=== PATIENT | female | born 2005 ===

== ENCOUNTER 2024-05-29 02:29 | Emergency (ER) | payer OTHER | END 2024-05-29 04:32 | disposition home or self-care (01) | LOC: FB.ED 02:29 | DX: S60.221A Contusion of right hand, initial encounter (principal); W23.1XXA Caught, crushed, jammed, or pinched between stationary objects, initial encounter | CPT/HCPCS: 73130-RT; 99283 ==

== ENCOUNTER 2024-07-20 20:51 | Emergency (ER) | payer OTHER ==
[2024-07-20] MEDS ORDERED: Ondansetron 4 MG Tab.DIS PO ONE (20:52)
[2024-07-20] MEDS ORDERED: Sodium Chloride 0.9% 10 ML Syringe FLUSH PRN (21:45)
[2024-07-20] MEDS: Sodium Chloride 0.9% 1,000 ML IV ONE (21:57)
[2024-07-20] MEDS: Promethazine 12.5 MG in Sodium Chloride 0.9% 50 ML IV ONE (21:58)
[2024-07-20 22:01] LABS: BASOPHILS ABSOLUTE AUTO 0.1 x10-3/uL (0.0-0.1); BASOPHILS PERCENT AUTO 0.7 % (0.2-1.5); EOSINOPHILS ABSOLUTE AUTO 0.2 x10-3/uL (0.0-0.8); EOSINOPHILS PERCENT AUTO 2.1 % (0.6-8.1); HEMATOCRIT 38.7 % (34.2-48.2); HEMOGLOBIN 13.4 g/dL (11.4-15.5); LYMPHOCYTES ABSOLUTE AUTO 2.8 x10-3/uL (1.0-4.4); LYMPHOCYTES PERCENT AUTO 26.4 % (18.4-52.1); MEAN CORPUSCULAR HEMOGLOBIN 31.7 pg (23.9-33.9); MEAN CORPUSCULAR HGB CONC 34.7 g/dL (31.9-34.8); MEAN CORPUSCULAR VOLUME 91.3 fL (76.7-100.5); MEAN PLATELET VOLUME 8.4 fL (7.1-12.4); MONOCYTES ABSOLUTE AUTO 0.7 x10-3/uL (0.3-1.0); MONOCYTES PERCENT AUTO 6.2 % (4.4-15.7); NEUTROPHILS ABSOLUTE AUTO 6.9 x10-3/uL (1.5-6.3); NEUTROPHILS PERCENT AUTO 64.6 % (30.8-76.2); PLATELET COUNT,PLT 393 x10(3)uL (151-488); RED BLOOD CELL COUNT 4.24 x10(6)uL (3.60-5.20); RED CELL DISTRIBUTION WIDTH 13.9 % (12.3-16.5); WHITE BLOOD CELL COUNT,WBC 10.7 x10-3/uL (3.0-10.3)
[2024-07-20 22:05] LABS: BILIRUBIN,URINE NEGATIVE (NEGATIVE); GLUCOSE,URINE NORMAL (NORMAL); KETONES,URINE NEGATIVE (NEGATIVE); LEUKOCYTE ESTERASE,URINE NEGATIVE (NEGATIVE); NITRITE,URINE NEGATIVE (NEGATIVE); OCCULT BLOOD,URINE MODERATE (NEGATIVE); PROTEIN,URINE NEGATIVE (NEGATIVE); UROBILINOGEN,URINE NORMAL (NEGATIVE)
[2024-07-20 22:05] LABS: BLOOD UREA NITROGEN,BUN 10 mg/dL (7-18); BUN/CREATININE RATIO 12.5 (9-20); CALCIUM 9.9 mg/dL (8.2-10.1); CARBON DIOXIDE,CO2 24 mmol/L (21-32); CHLORIDE,CL 103 mmol/L (100-110); CREATININE 0.8 mg/dL (0.55-1.02); EST CRCL DRUG DOSING (CG) 122.31 mL/min; ESTIMATED GFR 109 mL/min (>60); GLUCOSE RANDOM 99 mg/dL (80-116); POTASSIUM,K 3.7 mmol/L (3.5-5.3); SODIUM,NA 137 mmol/L (135-145)
[2024-07-20 22:07] LABS: APPEARANCE,URINE CLEAR (CLEAR); BACTERIA,URINE RARE (NS); COLOR,URINE YELLOW (YELLOW); RBC,URINE 0-5 (0-5); SQUAMOUS EPITHELIAL CELLS,UR RARE (NS,R,O); WBC,URINE 0-5 (0-5)
[2024-07-20 22:16] LABS: A/G RATIO 0.9; ALANINE AMINOTRANSFERASE,ALT 77 U/L (12-36); ALBUMIN 3.8 g/dL (3.2-4.5); ALKALINE PHOSPHATASE 83 IU/L (56-112); ASPARTATE AMNIOTRANSFERASE,AST 22 IU/L (5-25); BILIRUBIN TOTAL 0.3 mg/dL (0.1-1.2); MAGNESIUM 1.8 mg/dL (1.8-2.5); PROTEIN TOTAL,TP 8.1 g/dL (6.0-8.0)
== END 2024-07-20 23:50 | disposition home or self-care (01) ==
LOC: FB.ED 20:51
DX: R11.2 Nausea with vomiting, unspecified (principal); E86.0 Dehydration; R94.5 Abnormal results of liver function studies; Z88.0 Allergy status to penicillin
CPT/HCPCS: 36415; 80053; 81001; 81025; 83605; 83735; 85025; 96361; 96365; 99284; J2550; J3490; J7030; Q0162